=== PATIENT | female | born 1945 | race African-American/Black ===

== ENCOUNTER 2020-11-06 21:27 | Emergency (ER) | payer MEDICARE ==
[~2020-11-06] VITALS: Ht 175.3 cm; Wt 81.8 kg
[2020-11-06 21:29] VITALS: Ht 175.3 cm; Wt 81.8 kg
[2020-11-06] MEDS ORDERED: ZESTRIL20 MG PO (21:30)
[2020-11-06] MEDS ORDERED: NORVASC5 MG PO (21:31)
[2020-11-06 22:02] LABS: BASOPHILS 0.6 % (0-2); EOSINOPHILS 2.6 % (0-7); HEMATOCRIT 38.2 % (36.0-48.0); HEMOGLOBIN 12.3 g/dL (12-16); LYMPHOCYTES 46.6 % (15-50); MCH 26.5 pg (26.0-34.0); MCHC 32.2 g/dL (31.0-37.0); MCV 82.3 fL (80.0-100.0); MEAN PLATELET VOLUME 8.2 fL (7.4-10.4); MONOCYTES 6.2 % (2-11); PLATELET COUNT 298 10x3/uL (130-400); RBC 4.64 10x6/uL (4.00-5.40); RDW 14.2 % (11.5-14.5); WBC 9.8 10x3/uL (4.8-10.8)
[2020-11-06 22:09] LABS: APTT 34.1 SECONDS (22.8-39.4); CALC OSMOLALITY 280 mosm/kg (275-300); CALCIUM 9.8 mg/dL (8.5-10.1); CARBON DIOXIDE 30.1 mmol/L (21.0-32.0); CHLORIDE - SERUM 102 mmol/L (98-107); CREATININE - SERUM 1.1 mg/dL (0.6-1.3); GLUCOSE 101 mg/dL (74-106); INR 1.09 (0.85-1.17); POTASSIUM - SERUM 3.8 mmol/L (3.5-5.1); SODIUM 139 mmol/L (136-145); UREA NITROGEN 20 mg/dL (7-18); eGFR NON AFRICAN AMERICAN 51 mL/min (90-120)
[2020-11-06 22:26] LABS: ALBUMIN 3.7 g/dL (3.4-5.0); ALKALINE PHOSPHATASE 111 U/L (30-120); ALT (SGPT) 565 U/L (10-68); BILIRUBIN - TOTAL 0.93 mg/dL (0.2-1.3); CKMB 1.7 U/L (0.0-3.6); CREATINE KINASE 99 UL (21-215); PROTEIN - SERUM 8.3 g/dL (6.4-8.2)
[2020-11-06 22:32] LABS: TROPONIN-I < 0.017 ng/mL (0.000-0.060)
[2020-11-06 23:41] VITALS: BP 198/98
== END 2020-11-06 23:11 | disposition home or self-care (01) ==
LOC: D.ER 21:27
PROVIDERS: Family Medicine
DX: R07.89 Other chest pain (principal); K21.9 Gastro-esophageal reflux disease without esophagitis; R74.8 Abnormal levels of other serum enzymes; I10 Essential (primary) hypertension